=== PATIENT | male | born 1950 | race Caucasian/White ===

== ENCOUNTER 2016-08-09 03:32 | Emergency (ER) | payer MEDICARE ==
[~2016-08-09] VITALS: Ht 180.3 cm; Wt 64.4 kg
[~2016-08-09 03:32] MED LIST: REGL10TA5 PO
[2016-08-09 03:39] VITALS: BP 160/90; PULSE 69; RESP 22; TEMP 99; O2SAT 98
[2016-08-09 03:45] VITALS: BP 153/66; PULSE 68; RESP 16; TEMP 98.4; O2SAT 99
[2016-08-09] MEDS ORDERED: SODIUM CHLOR 0.9% 1000 ML INJ 1,000 ML IV SCH (03:47)
--- NOTE | 2016-08-09 03:47 | PD ---
HPI Chief Complaint: GI Complaint Time Seen by Provider: 03:45 Travel History International Travel<30 days: No Contact w/Intl Traveler<30days: No Traveled to known affect area: No History of Present Illness HPI 76-year-old male presents to the emergency department for complaint of abdominal pain with nausea vomiting and diarrhea. Symptoms of been present 3 days. Patient states pain worsened tonight. No fever or chills. No hematemesis no coffee-ground emesis no melena hematochezia. Patient is been seen numerous times in the emergency department for same complaint with multiple CAT scans of the abdomen and pelvis. Patient is followed by relay record clerk. Patient is to drinking alcohol last week. Patient has been treated in the past for gastritis pancreatitis as to paresis and is known by imaging study to have diverticulosis but no history of diverticulitis. Patient rates pain as moderate to severe. Patient is unable to identify exacerbating or alleviating factors. Patient reports "40 pound weight loss and 4 years". PFSH Past Medical History Narrative Medical Diverticulosis chronic abdominal pain possible gastroparesis GERD hypertension appendectomy; alcohol use no tobacco use; nursing notes reviewed Hx Anticoagulant Therapy: No Autoimmune Disease: No Cancer: No Cardiovascular Problems: No Chemotherapy: No Cerebrovascular Accident: No Diabetes: No Diminished Hearing: No Diverticulitis: Yes Endocrine: No Gastrointestinal Disorders: Yes GERD: Yes Genitourinary: No Hypertension: Yes Immune Disorder: No Musculoskeletal: Yes Neurologic: Yes (EAR RINGING LEFT EAR) Psychiatric: No Reproductive: No Respiratory: No Immunizations Current: Yes Radiation Therapy: No Sickle Cell Disease: No Thyroid Disease: No Ulcer: Yes (Gastric) Past Surgical History Abdominal Surgery: Yes (appendectomy ) Appendectomy: Yes Hysterectomy: No Other Surgery: Yes Social History Alcohol Use: No (States he quit 1 week ago) Tobacco Use: No (States he quit 1 week ago) Substance Use: No Allergies-Medications (Allergen,Severity, Reaction): Coded Allergies: No Known Allergies (Verified , 05/03/16) Reported Meds & Prescriptions Reported Meds & Active Scripts Active Review of Systems Except as stated in HPI: all other systems reviewed are Neg General / Constitutional: No: Fever, Chills HENT: No: Congestion Cardiovascular: No: Chest Pain or Discomfort Respiratory: No: Shortness of Breath Gastrointestinal: Positive: Nausea, Vomiting, Diarrhea, Abdominal Pain Genitourinary: No: Decreased Urinary Output, Flank Pain Musculoskeletal: No: Myalgias, Arthralgias Skin: No Rash Neurologic: No: Weakness, Dizziness Psychiatric: No: Anxiety Endocrine: No: Heat Intolerance Hematologic/Lymphatic: No: Easy Bruising Physical Exam Narrative GENERAL: Well-developed well-nourished male in no acute distress no respiratory distress SKIN: Warm and dry. HEAD: Normocephalic. EYES: No scleral icterus. No injection or drainage. NECK: Supple, trachea midline. No JVD or lymphadenopathy. CARDIOVASCULAR: Regular rate and rhythm without murmurs, gallops, or rubs. RESPIRATORY: Breath sounds equal bilaterally. No accessory muscle use. GASTROINTESTINAL: Abdomen soft, diffusely tender to palpation without guarding or rebound, nondistended. MUSCULOSKELETAL: No cyanosis, or edema. BACK: Nontender without obvious deformity. No CVA tenderness. Data Data Last Documented VS Vital Signs Date Time Temp Pulse Resp B/P Pulse Ox O2 Delivery O2 Flow Rate FiO2 08/09/16 05:35 74 16 156/72 99 Room Air 08/09/16 03:45 98.4 Orders Complete Blood Count With Diff (08/09/16 03:47) Comprehensive Metabolic Panel (08/09/16 03:47) Lipase (08/09/16 03:47) Iv Access Insert/Monitor (08/09/16 03:47) Ecg Monitoring (08/09/16 03:47) Oximetry (08/09/16 03:47) Ondansetron Inj (Zofran Inj) (08/09/16 04:00) Pantoprazole Inj (Protonix Inj) (08/09/16 04:00) Sodium Chlor 0.9% 1000 Ml Inj (Ns 1000 M (08/09/16 03:47) Sodium Chloride 0.9% Flush (Ns Flush) (08/09/16 04:00) Abdomen, Flat & Upright (08/09/16 ) Metoclopramide Inj (Reglan Inj) (08/09/16 05:00) Dicyclomine Inj (Bentyl Inj) (08/09/16 05:00) Ondansetron Inj (Zofran Inj) (08/09/16 05:30) Sodium Chlor 0.9% 1000 Ml Inj (Ns 1000 M (08/09/16 05:30) Promethazine Inj (Phenergan Inj) (08/09/16 07:00) Labs Laboratory Tests Test 08/09/16 03:45 White Blood Count 11.4 TH/MM3 Red Blood Count 4.82 MIL/MM3 Hemoglobin 16.0 GM/DL Hematocrit 48.1 % Mean Corpuscular Volume 99.9 FL Mean Corpuscular Hemoglobin 33.3 PG Mean Corpuscular Hemoglobin 33.3 % Concent Red Cell Distribution Width 13.7 % Platelet Count 237 TH/MM3 Mean Platelet Volume 8.4 FL Neutrophils (%) (Auto) 69.0 % Lymphocytes (%) (Auto) 16.0 % Monocytes (%) (Auto) 10.8 % Eosinophils (%) (Auto) 3.4 % Basophils (%) (Auto) 0.8 % Neutrophils # (Auto) 7.9 TH/MM3 Lymphocytes # (Auto) 1.8 TH/MM3 Monocytes # (Auto) 1.2 TH/MM3 Eosinophils # (Auto) 0.4 TH/MM3 Basophils # (Auto) 0.1 TH/MM3 CBC Comment DIFF FINAL Differential Comment Sodium Level 138 MEQ/L Potassium Level 3.8 MEQ/L Chloride Level 103 MEQ/L Carbon Dioxide Level 27.2 MEQ/L Anion Gap 8 MEQ/L Blood Urea Nitrogen 13 MG/DL Creatinine 0.82 MG/DL Estimat Glomerular Filtration 94 ML/MIN Rate Random Glucose 98 MG/DL Calcium Level 9.1 MG/DL Total Bilirubin 0.5 MG/DL Aspartate Amino Transf 16 U/L (AST/SGOT) Alanine Aminotransferase 21 U/L (ALT/SGPT) Alkaline Phosphatase 95 U/L Total Protein 7.4 GM/DL Albumin 3.7 GM/DL Lipase 384 U/L [facility] Medical Decision Making Medical Screen Exam Complete: Yes Emergency Medical Condition: Yes Medical Record Reviewed: Yes Interpretation(s) CBC & BMP Diagram 08/09/16 03:45 Vital Signs Date Time Temp Pulse Resp B/P Pulse Ox O2 Delivery O2 Flow Rate FiO2 08/09/16 03:45 68 16 153/66 99 08/09/16 03:39 99.0 69 22 160/90 98 Room Air AXR: No dilated loops of bowel; no air fluid levels; no subdiaphragmatic free air; stool is noted Differential Diagnosis Abdominal pain, gastroparesis, pancreatitis, gastritis, gastroenteritis, dehydration, diverticulitis, colitis, electrolyte disturbance, chronic pain syndrome Narrative Course IV access obtained specimens collected and sent for resulting patient administered normal saline bolus along with Protonix 40 mg IV Lab values grossly within normal range; patient sent for flat and upright abdomen x-ray Patient with recurrent vomiting reportedly therefore administered Reglan 10 mg IV and Bentyl 20 mg IM Patient appears stable at this time for outpatient management for chronic recurrent abdominal pain with vomiting; patient will be provided refill of antiemetic Diagnosis Primary Impression: Chronic abdominal pain Additional Impression: Nausea and vomiting Qualified Code: R11.2 - Non-intractable vomiting with nausea, unspecified vomiting type Referrals: Clinical Program Consultant call for appointment Primary Care Physician call for appointment Patient Instructions: General Instructions Additional Instructions: Follow clear liquid diet for next 12-24 hours; then advance as tolerated to bland/Jeronimo diet; then regular diet as tolerated Do not drink any alcoholic beverages Take medication as prescribed as needed for intestinal colic/spasm Take medication as prescribed as needed for nausea and/or vomiting Complete course of Carafate as prescribed Follow-up with your primary care physician call office on Thursday to schedule appointment Follow-up with your relay record clerk call office on Thursday to schedule follow- up appointment May take acetaminophen/Tylenol as needed for fever 100.4F or greater Return to the emergency department for any concerns or change in condition Med/Other Pt SpecificInfo: Prescription(s) given Scripts Ondansetron Odt (Zofran Odt)4 Mg Tab4 Mg SL Q6HR PRN (Nausea/Vomiting) #10 TAB Ref 0 Prov:Bharti Bagley MD 08/09/16 Promethazine (Phenergan)25 Mg Tab25 Mg PO Q6H PRN (Nausea/Vomiting) #10 TAB Ref 0 Prov:Bharti Bagley MD 08/09/16 Bharti Bagley MD Aug 09, 2016 03:46
[2016-08-09] MEDS ORDERED: ONDANSETRON HCL 4 MG/2 ML VIAL IVP ONE (04:00)
[2016-08-09] MEDS ORDERED: PANTOPRAZOLE SODIUM 40 MG VIAL IVP ONE (04:00)
[2016-08-09] MEDS ORDERED: SODIUM CHLORIDE 0.9% FLUSH 5 ML FLUSH IVF PRN (04:00)
[2016-08-09 04:05] LABS: AUTOMATED NEUTROPHIL # 7.9 TH/MM3 (1.8-7.7); BASOPHIL # 0.1 TH/MM3 (0-0.2); BASOPHIL % 0.8 % (0.0-2.0); EOSINOPHIL # 0.4 TH/MM3 (0-0.4); EOSINOPHIL % 3.4 % (0.0-4.0); HEMATOCRIT 48.1 % (39.0-51.0); LYMPHOCYTE # 1.8 TH/MM3 (1.0-4.8); MEAN CELL VOLUME 99.9 FL (80.0-100.0); MEAN CORPUSCULAR HEMOGLOBIN 33.3 PG (27.0-34.0); MEAN CORPUSCULAR HGB CONC 33.3 % (32.0-36.0); MONO % 10.8 % (0.0-8.0); PLATELET COUNT 237 TH/MM3 (150-450); RED BLOOD COUNT 4.82 MIL/MM3 (4.50-5.90); RED CELL DISTRIBUTION WIDTH 13.7 % (11.6-17.2); WHITE BLOOD COUNT 11.4 TH/MM3 (4.0-11.0)
[2016-08-09 04:13] LABS: HEMO FLAGS DIFF FINAL
[2016-08-09 04:18] LABS: CHLORIDE 103 MEQ/L (98-107); POTASSIUM 3.8 MEQ/L (3.5-5.1); SODIUM (NA) 138 MEQ/L (136-145)
[2016-08-09 04:22] LABS: ANION GAP 8 MEQ/L (5-15); BICARBONATE 27.2 MEQ/L (21.0-32.0); BLOOD UREA NITROGEN 13 MG/DL (7-18)
[2016-08-09 04:24] LABS: ALT (GPT) 21 U/L (12-78); AST (GOT) 16 U/L (15-37)
[2016-08-09 04:25] LABS: GLOMERULAR FILTRATION RATE 94 ML/MIN (>89)
[2016-08-09 04:26] LABS: TOTAL BILIRUBIN ADULT 0.5 MG/DL (0.2-1.0)
[2016-08-09 04:27] LABS: ALKALINE PHOSPHATASE 95 U/L (45-117)
[2016-08-09] MEDS ORDERED: DICYCLOMINE HCL 20 MG/2 ML VIAL IM ONE (05:00)
[2016-08-09] MEDS ORDERED: METOCLOPRAMIDE HCL 10 MG/2 ML VIAL IV PUSH ONE (05:00)
[2016-08-09] MEDS ORDERED: SODIUM CHLOR 0.9% 1000 ML INJ 1,000 ML IV ONE (05:30)
[2016-08-09] MEDS ORDERED: ONDANSETRON HCL 4 MG/2 ML VIAL IV PUSH ONE (05:30)
[2016-08-09 05:35] VITALS: BP 156/72; PULSE 74; RESP 16; O2SAT 99
[2016-08-09] MEDS ORDERED: PROMETHAZINE INJ 25 MG/ML VIAL IM ONE (07:00)
[2016-08-09] MEDS ORDERED: PROM25TA5 PO (07:01)
[2016-08-09] MEDS ORDERED: ZOFR4TAB3 SL (07:01)
--- NOTE | 2016-08-09 07:12 | RADHPO ---
EXAM DATE/TIME: 08/09/2016 05:07 [facility] COMPARISON: No previous studies available for comparison. INDICATIONS : Vomiting. MEDICAL HISTORY : Hypertension. Diverticulitis. SURGICAL HISTORY : Appendectomy. ENCOUNTER: Initial ACUITY: 1 day PAIN SCORE: 7/10 LOCATION: Bilateral abdomen FINDINGS: Supine and upright views of the abdomen were performed. The abdominal bowel gas pattern is normal. No air fluid levels are seen. No abnormal masses, calcifications, or organomegaly is seen. The visu alized lower lungs are clear. No evidence of free intraperitoneal gas. Degenerative changes in the s pine and hips. CONCLUSION: Nonspecific benign abdomen appearance. Galen Ribera MD on August 09, 2016 at 7:10 Board Certified Radiologist. This report was verified electronically.
[2016-08-09 07:13] VITALS: BP 144/62
== END 2016-08-09 07:22 | disposition home or self-care (01) ==
LOC: PHED 03:32
DX: R10.9 Unspecified abdominal pain (principal); G89.29 Other chronic pain; R11.2 Nausea with vomiting, unspecified; R19.7 Diarrhea, unspecified; I10 Essential (primary) hypertension; K21.9 Gastro-esophageal reflux disease without esophagitis; Z87.891 Personal history of nicotine dependence
CPT/HCPCS: 74020; 80053; 83690; 85025; 96361; 96372; 96374; 96375; 96376; 99284; C9113; J0500; J2405; J2550; J2765; J7030

== ENCOUNTER 2016-08-11 08:53 | Emergency (ER) | payer MEDICARE ==
[~2016-08-11] VITALS: Ht 180.3 cm; Wt 65.0 kg
[~2016-08-11 08:53] MED LIST changes: +PROM25TA5 PO; -REGL10TA5 PO; +ZOFR4TAB3 SL
[2016-08-11 09:01] VITALS: BP 152/81; PULSE 60; RESP 18; TEMP 97.8; O2SAT 99
[2016-08-11] MEDS ORDERED: ONDANSETRON HCL 4 MG/2 ML VIAL IVP ONE (09:30)
[2016-08-11] MEDS ORDERED: PROMETHAZINE INJ 25 MG/ML VIAL IM ONE (09:30)
[2016-08-11] MEDS ORDERED: SODIUM CHLORIDE 0.9% FLUSH 5 ML FLUSH IVF PRN (09:30)
[2016-08-11] MEDS ORDERED: SODIUM CHLOR 0.9% 1000 ML INJ 1,000 ML IV ONE (09:30)
[2016-08-11] MEDS ORDERED: DICYCLOMINE HCL 20 MG/2 ML VIAL IM ONE (09:30)
--- NOTE | 2016-08-11 09:37 | PD ---
HPI Chief Complaint: Abdominal Pain Time Seen by Provider: 09:15 Travel History International Travel<30 days: No Contact w/Intl Traveler<30days: No Traveled to known affect area: No History of Present Illness HPI This patient has had frequent spells of nausea vomiting and abdominal pain for the last 5 years. He's been here multiple times for the same and does have a GI physician. Symptoms of the same as usual. He was here 2 days ago and has the same symptoms. No rectal bleeding or hemoptysis. He is a fairly frequent alcohol drinker but denies drinking today. No alleviating factors. Severity symptoms is moderate PFSH Past Medical History Hx Anticoagulant Therapy: No Autoimmune Disease: No Cancer: No Cardiovascular Problems: No Chemotherapy: No Cerebrovascular Accident: No Diabetes: No Diminished Hearing: No Diverticulitis: Yes Endocrine: No Gastrointestinal Disorders: Yes (gastroentritis) GERD: Yes Genitourinary: No Heparin Induced Thrombocytopen: No Hypertension: No (states never was dx with htn) Immune Disorder: No Implanted Vascular Access Dvce: No Musculoskeletal: Yes Neurologic: Yes (EAR RINGING LEFT EAR) Psychiatric: No Reproductive: No Respiratory: No Immunizations Current: Yes Radiation Therapy: No Sickle Cell Disease: No Thyroid Disease: No Ulcer: Yes (Gastric) Tetanus Vaccination: > 5 Years Influenza Vaccination: No Past Surgical History Abdominal Surgery: Yes (appendectomy ) Appendectomy: Yes Hysterectomy: No Other Surgery: Yes Social History Alcohol Use: Yes (wine daily, states hx of a bottle of wine daily now drinks wine occas.) Tobacco Use: Yes (2 cigars d ) Substance Use: No Allergies-Medications (Allergen,Severity, Reaction): Coded Allergies: No Known Allergies (Verified , 08/11/16) Reported Meds & Prescriptions Reported Meds & Active Scripts Active Zofran Odt (Ondansetron Odt) 4 Mg Tab 4 Mg SL Q6HR PRN Phenergan (Promethazine HCl) 25 Mg Tab 25 Mg PO Q6H PRN Review of Systems General / Constitutional: No: Fever Eyes: No: Visual changes HENT: No: Headaches Cardiovascular: No: Chest Pain or Discomfort Respiratory: No: Shortness of Breath Gastrointestinal: Positive: Nausea, Vomiting, Abdominal Pain Genitourinary: No: Dysuria Musculoskeletal: No: Pain Skin: No Rash Neurologic: No: Weakness Psychiatric: No: Depression Endocrine: No: Polydipsia Hematologic/Lymphatic: No: Easy Bruising Physical Exam Narrative GENERAL: Well-nourished, well-developed patient with nausea and abdominal cramps. SKIN: Warm and dry. HEAD: Atraumatic. Normocephalic. EYES: Pupils equal and round. No scleral icterus. No injection or drainage. ENT: No nasal bleeding or discharge. Mucous membranes pink and moist. NECK: Trachea midline. No JVD. CARDIOVASCULAR: Regular rate and rhythm. No murmur appreciated. RESPIRATORY: No accessory muscle use. Clear to auscultation. Breath sounds equal bilaterally. GASTROINTESTINAL: Abdomen soft, non-tender, nondistended. Hepatic and splenic margins not palpable. MUSCULOSKELETAL: No obvious deformities. No clubbing. No cyanosis. No edema. NEUROLOGICAL: Awake and alert. No obvious cranial nerve deficits. Motor grossly within normal limits. Normal speech. PSYCHIATRIC: Appropriate mood and affect; insight and judgment poor . Data Data Last Documented VS Vital Signs Date Time Temp Pulse Resp B/P Pulse Ox O2 Delivery O2 Flow Rate FiO2 08/11/16 09:45 90 16 179/65 97 Room Air 08/11/16 09:01 97.8 Orders Complete Blood Count With Diff (08/11/16 09:27) Comprehensive Metabolic Panel (08/11/16 09:27) Lipase (08/11/16 09:27) Iv Access Insert/Monitor (08/11/16 09:27) Ondansetron Inj (Zofran Inj) (08/11/16 09:30) Sodium Chloride 0.9% Flush (Ns Flush) (08/11/16 09:30) Dicyclomine Inj (Bentyl Inj) (08/11/16 09:30) Sodium Chlor 0.9% 1000 Ml Inj (Ns 1000 M (08/11/16 09:30) Promethazine Inj (Phenergan Inj) (08/11/16 09:30) Labs Laboratory Tests Test 08/11/16 09:40 White Blood Count 8.1 TH/MM3 Red Blood Count 4.69 MIL/MM3 Hemoglobin 15.8 GM/DL Hematocrit 47.3 % Mean Corpuscular Volume 100.9 FL Mean Corpuscular Hemoglobin 33.7 PG Mean Corpuscular Hemoglobin 33.4 % Concent Red Cell Distribution Width 13.4 % Platelet Count 216 TH/MM3 Mean Platelet Volume 8.4 FL Neutrophils (%) (Auto) 70.1 % Lymphocytes (%) (Auto) 15.7 % Monocytes (%) (Auto) 9.6 % Eosinophils (%) (Auto) 2.0 % Basophils (%) (Auto) 2.6 % Neutrophils # (Auto) 5.6 TH/MM3 Lymphocytes # (Auto) 1.3 TH/MM3 Monocytes # (Auto) 0.8 TH/MM3 Eosinophils # (Auto) 0.2 TH/MM3 Basophils # (Auto) 0.2 TH/MM3 CBC Comment DIFF FINAL Differential Comment Sodium Level 138 MEQ/L Potassium Level 4.0 MEQ/L Chloride Level 102 MEQ/L Carbon Dioxide Level 26.5 MEQ/L Anion Gap 10 MEQ/L Blood Urea Nitrogen 18 MG/DL Creatinine 0.91 MG/DL Estimat Glomerular Filtration 83 ML/MIN Rate Random Glucose 104 MG/DL Calcium Level 8.7 MG/DL Total Bilirubin 0.5 MG/DL Aspartate Amino Transf 41 U/L (AST/SGOT) Alanine Aminotransferase 30 U/L (ALT/SGPT) Alkaline Phosphatase 86 U/L Total Protein 7.2 GM/DL Albumin 3.6 GM/DL Lipase 159 U/L [facility] Medical Decision Making Medical Screen Exam Complete: Yes Emergency Medical Condition: Yes Medical Record Reviewed: Yes Differential Diagnosis Gastroparesis, narcotic withdrawal, alcoholic pancreatitis Narrative Course I have reviewed the patient's electronic medical record. Reviewed his workup from 2 days ago. He had negative labs IV placed Abdomen is soft and benign and nontender This is a flare of a chronic problem is had for 5 years now We've done 5 CTs in the last year which were negative and I don't think he requires emergent imaging today CBC is normal Metabolic profile is normal LFTs are normal Lipase is normal I gave him 1 L normal saline IV and IV Zofran and IM Phenergan and IM Bentyl On recheck he looks improved. Stable for outpatient GI follow-up Diagnosis Primary Impression: Nausea and vomiting Qualified Code: R11.2 - Non-intractable vomiting with nausea, unspecified vomiting type Additional Impression: Chronic abdominal pain Additional Instructions: The patient was advised to follow up with their physician and return if they worsen. Med/Other Pt SpecificInfo: Other Disposition: 01 DISCHARGE HOME Condition: Stable Erwin Bourne MD Aug 11, 2016 09:37
[2016-08-11 09:45] VITALS: BP 179/65; PULSE 90; RESP 16; O2SAT 97
[2016-08-11 09:48] LABS: AUTOMATED NEUTROPHIL # 5.6 TH/MM3 (1.8-7.7); BASOPHIL # 0.2 TH/MM3 (0-0.2); BASOPHIL % 2.6 % (0.0-2.0); EOSINOPHIL # 0.2 TH/MM3 (0-0.4); HEMATOCRIT 47.3 % (39.0-51.0); LYMPH % 15.7 % (9.0-44.0); LYMPHOCYTE # 1.3 TH/MM3 (1.0-4.8); MEAN CELL VOLUME 100.9 FL (80.0-100.0); MEAN CORPUSCULAR HEMOGLOBIN 33.7 PG (27.0-34.0); MEAN CORPUSCULAR HGB CONC 33.4 % (32.0-36.0); MONO % 9.6 % (0.0-8.0); NEUT % 70.1 % (16.0-70.0); PLATELET COUNT 216 TH/MM3 (150-450); RED BLOOD COUNT 4.69 MIL/MM3 (4.50-5.90); RED CELL DISTRIBUTION WIDTH 13.4 % (11.6-17.2); WHITE BLOOD COUNT 8.1 TH/MM3 (4.0-11.0)
[2016-08-11 09:51] LABS: HEMO FLAGS DIFF FINAL
[2016-08-11 10:04] LABS: CHLORIDE 102 MEQ/L (98-107); SODIUM (NA) 138 MEQ/L (136-145)
[2016-08-11 10:09] LABS: ANION GAP 10 MEQ/L (5-15); BICARBONATE 26.5 MEQ/L (21.0-32.0); BLOOD UREA NITROGEN 18 MG/DL (7-18)
[2016-08-11 10:12] LABS: ALT (GPT) 30 U/L (12-78); GLOMERULAR FILTRATION RATE 83 ML/MIN (>89)
[2016-08-11 10:15] LABS: ALKALINE PHOSPHATASE 86 U/L (45-117)
[2016-08-11 10:33] LABS: AST (GOT) 41 U/L (15-37); TOTAL BILIRUBIN ADULT 0.5 MG/DL (0.2-1.0)
[2016-08-11 10:51] VITALS: BP 141/68
== END 2016-08-11 11:07 | disposition home or self-care (01) ==
LOC: PHED 08:53
DX: R10.9 Unspecified abdominal pain (principal); G89.29 Other chronic pain; R11.2 Nausea with vomiting, unspecified
CPT/HCPCS: 80053; 83690; 85025; 96361; 96372; 96374; 99284; J0500; J2405; J2550; J7030

== ENCOUNTER 2016-08-13 00:30 | Emergency (ER) | payer MEDICARE ==
[~2016-08-13] VITALS: Ht 180.3 cm; Wt 60.0 kg
[2016-08-13 00:40] VITALS: BP 200/87; PULSE 60; TEMP 98.3; O2SAT 100
[2016-08-13] MEDS ORDERED: TUMS500C CHEW (01:04)
[2016-08-13 01:35] LABS: BASOPHIL # 0.1 TH/MM3 (0-0.2); BASOPHIL % 0.7 % (0.0-2.0); EOSINOPHIL # 0.3 TH/MM3 (0-0.4); EOSINOPHIL % 4.5 % (0.0-4.0); HEMATOCRIT 42.8 % (39.0-51.0); HEMO FLAGS DIFF FINAL; LYMPH % 18.7 % (9.0-44.0); LYMPHOCYTE # 1.4 TH/MM3 (1.0-4.8); MEAN CELL VOLUME 100.7 FL (80.0-100.0); MEAN CORPUSCULAR HEMOGLOBIN 35.1 PG (27.0-34.0); MEAN CORPUSCULAR HGB CONC 34.9 % (32.0-36.0); MONO % 11.5 % (0.0-8.0); NEUT % 64.6 % (16.0-70.0); PLATELET COUNT 222 TH/MM3 (150-450); RED BLOOD COUNT 4.25 MIL/MM3 (4.50-5.90); RED CELL DISTRIBUTION WIDTH 13.6 % (11.6-17.2); WHITE BLOOD COUNT 7.7 TH/MM3 (4.0-11.0)
[2016-08-13 02:08] LABS: ALT (GPT) 32 U/L (12-78); ANION GAP 11 MEQ/L (5-15); AST (GOT) 46 U/L (15-37); BICARBONATE 24.7 MEQ/L (21.0-32.0); BLOOD UREA NITROGEN 17 MG/DL (7-18); CHLORIDE 102 MEQ/L (98-107); GLOMERULAR FILTRATION RATE 86 ML/MIN (>89); POTASSIUM 4.1 MEQ/L (3.5-5.1); SODIUM (NA) 138 MEQ/L (136-145)
[2016-08-13 02:10] LABS: ALKALINE PHOSPHATASE 78 U/L (45-117); TOTAL BILIRUBIN ADULT 0.5 MG/DL (0.2-1.0)
[2016-08-13] MEDS ORDERED: PANTOPRAZOLE SODIUM 40 MG VIAL IV PUSH ONE (02:15)
[2016-08-13] MEDS ORDERED: ONDANSETRON HCL 4 MG/2 ML VIAL IV PUSH ONE (02:15)
[2016-08-13] MEDS ORDERED: SODIUM CHLOR 0.9% 1000 ML INJ 1,000 ML IV ONE (02:15)
[2016-08-13] MEDS ORDERED: IOHEXOL 350 MG/ML 10 ML VIAL (for RAD DIAG) IV ONE (02:55)
--- NOTE | 2016-08-13 03:02 | RADRPT ---
EXAM DATE/TIME: 08/13/2016 02:48 [facility] COMPARISON: CT ABDOMEN & PELVIS W CONTRAST, April 28, 2016, 18:32. INDICATIONS : Abdominal pain along with vomiting IV CONTRAST: 92 cc Omnipaque 350 (iohexol) IV ORAL CONTRAST: No oral contrast ingested. RADIATION DOSE: 6.37 CTDIvol (mGy) MEDICAL HISTORY : Diabetes mellitus type 2. Gastroesophageal reflux disease. SURGICAL HISTORY : Appendectomy. ENCOUNTER: Initial ACUITY: 1 day PAIN SCALE: 3/10 LOCATION: abdomen TECHNIQUE: Volumetric scanning of the abdomen and pelvis was performed. Using automated exposure control and ad justment of the mA and/or kV according to patient size, radiation dose was kept as low as reasonably achievable to obtain optimal diagnostic quality images. FINDINGS: LOWER LUNGS: The visualized lower lungs are clear. Small sliding-type hiatal hernia. LIVER: Homogeneous density without lesion. There is no dilation of the biliary tree. No calcified gallston es. SPLEEN: Normal size without lesion. PANCREAS: Within normal limits. KIDNEYS: Normal in size and shape. There is no mass, stone or hydronephrosis. ADRENAL GLANDS: Within normal limits. VASCULAR: There is no aortic aneurysm. BOWEL/MESENTERY: Extensive diverticular disease in the descending and sigmoid colon without diverticulitis. ABDOMINAL WALL: Within normal limits. RETROPERITONEUM: There is no lymphadenopathy. BLADDER: No wall thickening or mass. REPRODUCTIVE: Within normal limits. INGUINAL: There is no lymphadenopathy or hernia. MUSCULOSKELETAL: Within normal limits for patient age. CONCLUSION: 1. Diverticular disease of the descending and sigmoid colon without diverticulitis. 2. Small hiatal hernia. 3. Nothing acute. Niko Don MD on August 13, 2016 at 2:58 Board Certified Radiologist. This report was verified electronically.
[2016-08-13] MEDS ORDERED: HYDROmorphone HCL PF 1 MG/ML VIAL IV PUSH ONE (03:15)
[2016-08-13 04:10] LABS: BLOOD, URINE NEG (NEG); GLUCOSE,URINE NEG (NEG); HYALINE CAST, URINE 1 /lpf (RARE); KETONE, URINE 10 mg/dL (NEG); NITRITE,URINE NEG (NEG); URINE COLOR YELLOW (YELLW/STRAW)
[2016-08-13 04:11] LABS: COMMENT (UR) CULT NOT INDICATED; CULTURE IF INDICATED CULT NOT INDICATED
[2016-08-13 05:00] VITALS: BP 142/66; RESP 16; O2SAT 95
[2016-08-13] MEDS ORDERED: FAMO1TAB73 PO (05:07)
--- NOTE | 2016-08-13 05:07 | PD ---
HPI Chief Complaint: Abdominal Pain Time Seen by Provider: 02:13 Travel History International Travel<30 days: No Contact w/Intl Traveler<30days: No Traveled to known affect area: No History of Present Illness HPI 66-year-old male with history of chronic abdominal pains, diverticulosis, here in the ER because of worsening abdominal pain which is in the upper abdomen rating it at an 8 out of 10, nausea, vomiting small amount of blood. He states that he thinks symptoms may have worsened when he ate. He denies any fevers, diarrhea, black stools, or any other symptoms. Symptoms are similar to previous symptoms of chronic abdominal pains. He states he was here several days ago for similar symptoms and had been given Phenergan and Zofran which she states did not work very well for him today although he only took in the morning. He denies any blood in the stool. Modifying Factors: None Associated Signs & Symptoms: Nausea, vomiting, upper abdominal pain Risk Factors: Chronic abdominal pains PFSH Past Medical History Hx Anticoagulant Therapy: No Autoimmune Disease: No Cancer: No Cardiovascular Problems: No Chemotherapy: No Cerebrovascular Accident: No Diabetes: No Diminished Hearing: No Diverticulitis: Yes Endocrine: No Gastrointestinal Disorders: Yes (gastroentritis) GERD: Yes Genitourinary: No Heparin Induced Thrombocytopen: No Immune Disorder: No Implanted Vascular Access Dvce: No Musculoskeletal: Yes Neurologic: Yes (EAR RINGING LEFT EAR) Psychiatric: No Reproductive: No Respiratory: No Immunizations Current: Yes Radiation Therapy: No Sickle Cell Disease: No Thyroid Disease: No Ulcer: Yes (Gastric) Past Surgical History Abdominal Surgery: Yes (appendectomy ) Appendectomy: Yes Hysterectomy: No Other Surgery: Yes Social History Alcohol Use: Yes (QUIT Aug ) Tobacco Use: No Substance Use: No Allergies-Medications (Allergen,Severity, Reaction): Coded Allergies: No Known Allergies (Verified , 08/11/16) Reported Meds & Prescriptions Reported Meds & Active Scripts Active Zofran Odt (Ondansetron Odt) 4 Mg Tab 4 Mg SL Q6HR PRN Phenergan (Promethazine HCl) 25 Mg Tab 25 Mg PO Q6H PRN Reported Tums (Calcium Carbonate (Antacid)) 500 Mg Chew 500 Mg CHEW PRN Review of Systems Except as stated in HPI: all other systems reviewed are Neg Physical Exam Narrative GENERAL: Well-nourished, well-developed elderly white male patient in mild distress. Awake and oriented 3. SKIN: Warm and dry. HEAD: Normocephalic. EYES: No scleral icterus. No injection or drainage. NECK: Supple, trachea midline. CARDIOVASCULAR: Regular rate and rhythm without murmurs, gallops, or rubs. RESPIRATORY: Breath sounds equal bilaterally. No accessory muscle use. GASTROINTESTINAL: Abdomen soft, epigastric abdominal tenderness and left upper quadrant tenderness without guarding or rebound, nondistended. MUSCULOSKELETAL: No cyanosis, or edema. BACK: Nontender without obvious deformity. No CVA tenderness. Data Data Last Documented VS Vital Signs Date Time Temp Pulse Resp B/P Pulse Ox O2 Delivery O2 Flow Rate FiO2 08/13/16 00:40 98.3 60 200/87 100 Orders Complete Blood Count With Diff (08/13/16 00:52) Comprehensive Metabolic Panel (08/13/16 00:52) Urinalysis - C+S If Indicated (08/13/16 00:52) Ondansetron Inj (Zofran Inj) (08/13/16 02:15) Sodium Chlor 0.9% 1000 Ml Inj (Ns 1000 M (08/13/16 02:15) Pantoprazole Inj (Protonix Inj) (08/13/16 02:15) Ct Abd/Pel W Iv Contrast(Rout) (08/13/16 02:14) Iohexol 350 Inj (Omnipaque 350 Inj) (08/13/16 02:55) Hydromorphone Pf Inj (Dilaudid Pf Inj) (08/13/16 03:15) Labs Laboratory Tests Test 08/13/16 08/13/16 01:12 03:50 White Blood Count 7.7 TH/MM3 Red Blood Count 4.25 MIL/MM3 Hemoglobin 14.9 GM/DL Hematocrit 42.8 % Mean Corpuscular Volume 100.7 FL Mean Corpuscular Hemoglobin 35.1 PG Mean Corpuscular Hemoglobin 34.9 % Concent Red Cell Distribution Width 13.6 % Platelet Count 222 TH/MM3 Mean Platelet Volume 8.7 FL Neutrophils (%) (Auto) 64.6 % Lymphocytes (%) (Auto) 18.7 % Monocytes (%) (Auto) 11.5 % Eosinophils (%) (Auto) 4.5 % Basophils (%) (Auto) 0.7 % Neutrophils # (Auto) 5.0 TH/MM3 Lymphocytes # (Auto) 1.4 TH/MM3 Monocytes # (Auto) 0.9 TH/MM3 Eosinophils # (Auto) 0.3 TH/MM3 Basophils # (Auto) 0.1 TH/MM3 CBC Comment DIFF FINAL Differential Comment Sodium Level 138 MEQ/L Potassium Level 4.1 MEQ/L Chloride Level 102 MEQ/L Carbon Dioxide Level 24.7 MEQ/L Anion Gap 11 MEQ/L Blood Urea Nitrogen 17 MG/DL Creatinine 0.88 MG/DL Estimat Glomerular Filtration 86 ML/MIN Rate Random Glucose 108 MG/DL Calcium Level 8.5 MG/DL Total Bilirubin 0.5 MG/DL Aspartate Amino Transf 46 U/L (AST/SGOT) Alanine Aminotransferase 32 U/L (ALT/SGPT) Alkaline Phosphatase 78 U/L Total Protein 7.1 GM/DL Albumin 3.7 GM/DL Urine Color YELLOW Urine Turbidity CLEAR Urine pH 6.0 Urine Specific [place] 1.020 Urine Protein NEG mg/dL Urine Glucose (UA) NEG mg/dL Urine Ketones 10 mg/dL Urine Occult Blood NEG Urine Nitrite NEG Urine Bilirubin NEG Urine Urobilinogen LESS THAN 2.0 MG/DL Urine Leukocyte Esterase NEG Urine RBC 1 /hpf Urine WBC LESS THAN 1 /hpf Urine Hyaline Casts 1 /lpf Microscopic Urinalysis Comment CULT NOT INDICATED MDM Medical Decision Making Medical Screen Exam Complete: Yes Emergency Medical Condition: Yes Medical Record Reviewed: Yes Interpretation(s) Laboratory Tests Test 08/13/16 08/13/16 01:12 03:50 Red Blood Count 4.25 MIL/MM3 (4.50-5.90) Mean Corpuscular Volume 100.7 FL (80.0-100.0) Mean Corpuscular Hemoglobin 35.1 PG (27.0-34.0) Monocytes (%) (Auto) 11.5 % (0.0-8.0) Eosinophils (%) (Auto) 4.5 % (0.0-4.0) Estimat Glomerular Filtration 86 ML/MIN (>89) Rate Random Glucose 108 MG/DL (74-106) Aspartate Amino Transf 46 U/L (15-37) (AST/SGOT) Urine Ketones 10 mg/dL (NEG) Last 24 hours Impressions Abdomen/Pelvis CT 08/13/164 Signed Impressions: Service Date/Time: Saturday, August 13, 2016 02:48 - CONCLUSION: 1. Diverticular disease of the descending and sigmoid colon without diverticulitis. 2. Small hiatal hernia. 3. Nothing acute. Niko Don MD Differential Diagnosis Abdominal pain, nausea, vomitinggastritis versus gastroenteritis versus diverticulitis versus obstruction Narrative Course Lab work did not indicate significant electrolyte abnormalities or acute intra- abdominal processes seen on CAT scan. It appears that this is an acute on chronic abdominal episodes. Patient was given IV fluids, pain medication and Zofran in the ER with no further vomiting episodes on reevaluation at 4:40 AM. My plan would be to release the patient would follow-up to GI doctor. Return for any worsening in symptoms as needed. The plan has been discussed with him and he states understanding. Diagnosis Primary Impression: Abdominal pain Additional Impression: Nausea and vomiting Med/Other Pt SpecificInfo: Prescription(s) given Scripts Famotidine (Pepcid)40 Mg Tab40 Mg PO BID #20 TAB Ref 0 Prov:Ivan Chávez MD 08/13/16 Disposition: 01 DISCHARGE HOME Condition: Stable Ivan Chávez MD Aug 13, 2016 05:07
== END 2016-08-13 05:28 | disposition home or self-care (01) ==
LOC: NEPE 00:30
DX: R10.10 Upper abdominal pain, unspecified (principal); R11.2 Nausea with vomiting, unspecified
CPT/HCPCS: 74177; 80053; 81001; 85025; 96361; 96374; 96375; 99284; C9113; J1170; J2405; J7030; Q9967

== ENCOUNTER 2016-08-14 22:02 | Emergency (ER) | payer MEDICARE ==
[~2016-08-14] VITALS: Ht 180.3 cm; Wt 63.0 kg
[~2016-08-14 22:02] MED LIST changes: +FAMO1TAB73 PO; +TUMS500C CHEW
[2016-08-14 22:03] VITALS: BP 198/88; PULSE 64; RESP 24; TEMP 99; O2SAT 100
[2016-08-15] MEDS ORDERED: OMEP40CA2 PO (15:21)
[2016-08-15] MEDS ORDERED: MIRA33504 PO (15:21)
== END 2016-08-14 23:42 | disposition left against medical advice (07) ==
LOC: NED 22:02
DX: R68.89 Other general symptoms and signs (principal)
CPT/HCPCS: 99281

== ENCOUNTER 2016-08-14 23:20 | Observation (INO) | payer MEDICARE ==
[~2016-08-14] VITALS: Ht 180.3 cm; Wt 64.7 kg
[2016-08-14 23:25] VITALS: BP 148/78; PULSE 63; RESP 18; TEMP 98.1; O2SAT 99
[2016-08-14] MEDS ORDERED: PANTOPRAZOLE SODIUM 40 MG VIAL IVP ONE (23:45)
[2016-08-14] MEDS ORDERED: SODIUM CHLORIDE 0.9% FLUSH 5 ML FLUSH IVF PRN (23:45)
[2016-08-14] MEDS ORDERED: ONDANSETRON HCL 4 MG/2 ML VIAL IVP ONE (23:45)
--- NOTE | 2016-08-14 23:55 | PD ---
HPI Chief Complaint: GI Complaint Time Seen by Provider: 00:39 Travel History International Travel<30 days: No Contact w/Intl Traveler<30days: No Traveled to known affect area: No History of Present Illness HPI 66-year-old male presents to the emergency department for complaint of epigastric abdominal pain with nausea and vomiting. This is his fourth visit in 5 days for same complaint. Patient has history of chronic recurrent abdominal pain gastroparesis and episodes of vomiting with remote history of pancreatitis. Patient states that 08/13/16 he was seen in the emergency department at [facility] and a CT abdomen and pelvis was performed which revealed no acute abnormality. He reports he was told by the physician at that time that he hasn't also urged follow-up with his interactive multimedia designer. Patient states he placed a phone call but no one returned his call and he did not take his medications today because he forgot them and this evening around 7:30 started having recurrent nausea vomiting and thinks he was vomiting blood. Patient's had no black or tarry stools. Patient admits to drinking alcohol as recently as one week ago. Patient has been prescribed Pepcid Phenergan and Zofran. No reported fever chills chest pain or shortness of breath. Patient's interactive multimedia designer is Dr. Bradford. Past medical history is significant for gastritis GERD gastroparesis chronic recurrent abdominal pain pancreatitis alcohol use diverticulosis anxiety hypertension and previous appendectomy. Patient rates his abdominal pain 8/10 in intensity. [facility] Past Medical History Narrative Medical Diverticulosis chronic abdominal pain gastroparesis gastritis GERD hypertension appendectomy alcohol use no tobacco use nursing notes reviewed Hx Anticoagulant Therapy: No Autoimmune Disease: No Cancer: No Cardiovascular Problems: No Chemotherapy: No Cerebrovascular Accident: No Diabetes: No Diminished Hearing: No Diverticulitis: Yes Endocrine: No Gastrointestinal Disorders: Yes (gastroentritis) GERD: Yes Genitourinary: No Heparin Induced Thrombocytopen: No Immune Disorder: No Implanted Vascular Access Dvce: No Musculoskeletal: Yes Neurologic: Yes (EAR RINGING LEFT EAR) Psychiatric: No Reproductive: No Respiratory: No Immunizations Current: Yes Radiation Therapy: No Sickle Cell Disease: No Thyroid Disease: No Ulcer: Yes (Gastric) ?: Not Past Surgical History Abdominal Surgery: Yes (appendectomy ) Appendectomy: Yes Hysterectomy: No Other Surgery: Yes Social History Alcohol Use: Yes (QUIT Aug ) Tobacco Use: No Substance Use: No Allergies-Medications (Allergen,Severity, Reaction): Coded Allergies: No Known Allergies (Verified , 08/14/16) Reported Meds & Prescriptions Reported Meds & Active Scripts Active Phenergan (Promethazine HCl) 25 Mg Tab 25 Mg PO Q6H PRN Reported Tums (Calcium Carbonate (Antacid)) 500 Mg Chew 500 Mg CHEW PRN Review of Systems Except as stated in HPI: all other systems reviewed are Neg General / Constitutional: No: Fever, Chills HENT: No: Congestion Cardiovascular: No: Chest Pain or Discomfort Respiratory: No: Shortness of Breath Gastrointestinal: Positive: Nausea, Vomiting, Abdominal Pain, Hematemesis, No : Diarrhea Genitourinary: No: Dysuria, Flank Pain Musculoskeletal: No: Myalgias, Arthralgias Skin: No Rash Neurologic: No: Weakness Psychiatric: No: Anxiety Hematologic/Lymphatic: No: Easy Bruising Physical Exam Narrative GENERAL: Well-developed well-nourished male in no acute distress no respiratory distress SKIN: Warm and dry. HEAD: Normocephalic. EYES: No scleral icterus. No injection or drainage. NECK: Supple, trachea midline. No JVD or lymphadenopathy. CARDIOVASCULAR: Regular rate and rhythm without murmurs, gallops, or rubs. RESPIRATORY: Breath sounds equal bilaterally. No accessory muscle use. GASTROINTESTINAL: Abdomen soft, reproducible epigastric and periumbilical tenderness to palpation without guarding or rebound and no palpable pulsatile mass, nondistended. MUSCULOSKELETAL: No cyanosis, or edema. BACK: Nontender without obvious deformity. No CVA tenderness. Data Data Last Documented VS Vital Signs Date Time Temp Pulse Resp B/P Pulse Ox O2 Delivery O2 Flow Rate FiO2 08/15/16 00:13 72 18 160/80 74 18 175/76 72 174/79 08/14/16 23:25 98.1 99 Orders Complete Blood Count With Diff (08/14/16 23:44) Comprehensive Metabolic Panel (08/14/16 23:44) Lipase (08/14/16 23:44) Lactic Acid (08/14/16 23:44) Iv Access Insert/Monitor (08/14/16 23:44) Ecg Monitoring (08/14/16 23:44) Oximetry (08/14/16 23:44) Ondansetron Inj (Zofran Inj) (08/14/16 23:45) Pantoprazole Inj (Protonix Inj) (08/14/16 23:45) Sodium Chloride 0.9% Flush (Ns Flush) (08/14/16 23:45) Electrocardiogram (08/14/16 23:44) Orthostatic Vital Signs (08/14/16 23:44) Magnesium (Mg) (08/14/16 23:44) Alcohol (Ethanol) (08/14/16 23:44) Abdomen, Flat & Upright (08/14/16 ) Metoclopramide Inj (Reglan Inj) (08/15/16 00:45) Admit Order (Ed Use Only) (08/15/16 ) ^ Saline Lock (08/15/16 01:51) Resp Oxygen Selwyn C Titrat 1-4 L (08/15/16 ) ^ Notify Dr: Other (08/15/16 01:51) Sodium Chloride 0.9% Flush (Ns Flush) (08/15/16 09:00) Sodium Chloride 0.9% Flush (Ns Flush) (08/15/16 02:00) Labs Laboratory Tests Test 08/15/16 00:00 White Blood Count 9.6 TH/MM3 Red Blood Count 4.35 MIL/MM3 Hemoglobin 14.9 GM/DL Hematocrit 43.6 % Mean Corpuscular Volume 100.2 FL Mean Corpuscular Hemoglobin 34.3 PG Mean Corpuscular Hemoglobin 34.3 % Concent Red Cell Distribution Width 12.6 % Platelet Count 233 TH/MM3 Mean Platelet Volume 8.6 FL Neutrophils (%) (Auto) 77.5 % Lymphocytes (%) (Auto) 10.9 % Monocytes (%) (Auto) 7.2 % Eosinophils (%) (Auto) 3.5 % Basophils (%) (Auto) 0.9 % Neutrophils # (Auto) 7.5 TH/MM3 Lymphocytes # (Auto) 1.0 TH/MM3 Monocytes # (Auto) 0.7 TH/MM3 Eosinophils # (Auto) 0.3 TH/MM3 Basophils # (Auto) 0.1 TH/MM3 CBC Comment AUTO DIFF Differential Comment AUTO DIFF CONFIRMED Platelet Estimate NORMAL Platelet Morphology Comment NORMAL Sodium Level 138 MEQ/L Potassium Level 3.4 MEQ/L Chloride Level 102 MEQ/L Carbon Dioxide Level 23.7 MEQ/L Anion Gap 12 MEQ/L Blood Urea Nitrogen 12 MG/DL Creatinine 0.91 MG/DL Estimat Glomerular Filtration 83 ML/MIN Rate Random Glucose 95 MG/DL Lactic Acid Level 2.8 mmol/L Calcium Level 8.9 MG/DL Magnesium Level 1.7 MG/DL Total Bilirubin 0.6 MG/DL Aspartate Amino Transf 34 U/L (AST/SGOT) Alanine Aminotransferase 36 U/L (ALT/SGPT) Alkaline Phosphatase 79 U/L Total Protein 7.3 GM/DL Albumin 3.7 GM/DL Lipase 156 U/L Ethyl Alcohol Level LESS THAN 3 MG/DL MDM Medical Decision Making Medical Screen Exam Complete: Yes Emergency Medical Condition: Yes Medical Record Reviewed: Yes Interpretation(s) lactic acid: 2.8, elevated Last Impressions Abdomen X-Ray 08/14/16 0000 Signed Impressions: Service Date/Time: Monday, August 15, 2016 00:20 - CONCLUSION: No dilated loops of small or large bowel. Gonsalo Hoyt MD CBC & BMP Diagram 08/15/16 00:00 Vital Signs Date Time Temp Pulse Resp B/P Pulse Ox O2 Delivery O2 Flow Rate FiO2 08/15/16 00:13 72 18 160/80 74 18 175/76 72 174/79 08/14/16 23:25 98.1 63 18 148/78 99 EKG: Sinus bradycardia rate 50 prolonged QT of 504 ms with QTC of [address] elevation or injury pattern change noted Differential Diagnosis Chronic abdominal pain, gastritis, peptic ulcer disease, perforated viscus, GI bleed, esophageal variceal bleed, Ramonita-Ramírez tear, Boerhaave's, gastroparesis , pancreatitis, biliary colic, dehydration, medical noncompliance, malingering Narrative Course IV access obtained specimens collected and sent for resulting orthostatic measurements performed patient administered Protonix 40 mg IV and Zofran 4 mg IV Patient with persistent vomiting Reglan 10 mg IV piggyback administered along with normal saline bolus Patient continues to complain of epigastric pain with ongoing nausea; patient identified to have elevated lactic acid of 2.8 most likely reflective of vomiting and hydration status; no significant electrolyte disturbance; hemoglobin remained stable patient has Hemoccult testing negative for blood in emesis or on rectal exam. Patient with persistent pain and vomiting; plan will be observation admission for intractable vomiting also noted to have prolonged QT on EKG with concern for possible inappropriate dosing of Zofran as an outpatient will hold further Zofran at this time. Critical Care Narrative Aggregate critical care time was 35 minutes. Time to perform other separately billable procedures was not included in the critical care time. My time did not include minutes spent treating any other patients simultaneously or on activities that did not directly contribute to the patient's treatment. The services I provided to this patient were to treat and/or prevent clinically significant deterioration that could result in: Arrhythmia, metabolic/ electrolyte disturbance, I provided critical care services requiring my management, as noted below: Chart data review, documentation time, medication orders and management, vital sign assessments/reviewing monitor data, ordering and reviewing lab tests, ordering and interpreting/reviewing x-rays and diagnostic studies, care of the patient and discussion of the patient with the admitting physicians. HemaPrompt Point of Care Internal Pos. & Neg. Controls: Passed Gastric Specimen Occult Blood: Negative Physician Communication Physician Communication discussed with Dr Castanon--obs Diagnosis Primary Impression: Intractable vomiting with nausea Qualified Code: R11.2 - Intractable vomiting with nausea, unspecified vomiting type Admitting Information Admitting Physician Requests: Observation Bharti Bagley MD Aug 14, 2016 23:55
[2016-08-15] VITALS (7 sets, daily range): BP systolic 131–175; BP diastolic 56–83; PULSE 57–78; RESP 16–18; TEMP 97.1–98.1; O2SAT 92–99
[2016-08-15 00:18] LABS: AUTOMATED NEUTROPHIL # 7.5 TH/MM3 (1.8-7.7); BASOPHIL # 0.1 TH/MM3 (0-0.2); BASOPHIL % 0.9 % (0.0-2.0); EOSINOPHIL # 0.3 TH/MM3 (0-0.4); EOSINOPHIL % 3.5 % (0.0-4.0); HEMATOCRIT 43.6 % (39.0-51.0); HEMO FLAGS AUTO DIFF; LYMPH % 10.9 % (9.0-44.0); MEAN CELL VOLUME 100.2 FL (80.0-100.0); MEAN CORPUSCULAR HEMOGLOBIN 34.3 PG (27.0-34.0); MEAN CORPUSCULAR HGB CONC 34.3 % (32.0-36.0); MONO % 7.2 % (0.0-8.0); NEUT % 77.5 % (16.0-70.0); PLATELET COUNT 233 TH/MM3 (150-450); RED BLOOD COUNT 4.35 MIL/MM3 (4.50-5.90); RED CELL DISTRIBUTION WIDTH 12.6 % (11.6-17.2); WHITE BLOOD COUNT 9.6 TH/MM3 (4.0-11.0)
[2016-08-15 00:37] LABS: CHLORIDE 102 MEQ/L (98-107); POTASSIUM 3.4 MEQ/L (3.5-5.1); SODIUM (NA) 138 MEQ/L (136-145)
[2016-08-15 00:41] LABS: ANION GAP 12 MEQ/L (5-15); BICARBONATE 23.7 MEQ/L (21.0-32.0); BLOOD UREA NITROGEN 12 MG/DL (7-18); MAGNESIUM 1.7 MG/DL (1.5-2.5)
[2016-08-15 00:43] LABS: ALT (GPT) 36 U/L (12-78); AST (GOT) 34 U/L (15-37); GLOMERULAR FILTRATION RATE 83 ML/MIN (>89)
[2016-08-15 00:45] LABS: TOTAL BILIRUBIN ADULT 0.6 MG/DL (0.2-1.0)
[2016-08-15] MEDS ORDERED: METOCLOPRAMIDE HCL 10 MG/2 ML VIAL IV PUSH ONE (00:45)
[2016-08-15 00:46] LABS: ALKALINE PHOSPHATASE 79 U/L (45-117)
--- NOTE | 2016-08-15 00:46 | RADHPO ---
EXAM DATE/TIME: 08/15/2016 00:20 [place] COMPARISON: ABDOMEN FLAT & UPRIGHT, August 09, 2016, 5:07. INDICATIONS : Nausea, vomiting for 12 hours MEDICAL HISTORY : None. SURGICAL HISTORY : Appendectomy. ENCOUNTER: Initial ACUITY: 1 day PAIN SCORE: 10/10 LOCATION: Bilateral upper abdomen FINDINGS: Supine and upright views of the abdomen were performed. The abdominal bowel gas pattern is normal. No air fluid levels are seen. No abnormal masses, calcifications, or organomegaly is seen. The visu alized lower lungs are clear. No evidence of free intraperitoneal gas. Stable degenerative changes in the spine and hips. CONCLUSION: No dilated loops of small or large bowel. Gonsalo Hoyt MD on August 15, 2016 at 0:44 Board Certified Radiologist. This report was verified electronically.
[2016-08-15 01:09] LABS: PLATELET ESTIMATE SMEAR NORMAL (NORMAL); PLATELET MORPHOLOGY NORMAL (NORMAL); SCAN/DIFF AUTO DIFF CONFIRMED
[2016-08-15] MEDS ORDERED: SODIUM CHLORIDE 0.9% FLUSH 5 ML FLUSH IVF PRN (02:00)
[2016-08-15] MEDS ORDERED: BISACODYL 10 MG SUPP PR PRN (02:15)
[2016-08-15] MEDS ORDERED: ACETAMINOPHEN 325 MG TAB PO PRN (02:15)
[2016-08-15] MEDS ORDERED: ACETAMINOPHEN/HYDROcodone 325 MG/5 MG TAB PO PRN (02:15)
[2016-08-15] MEDS ORDERED: SODIUM CHLORIDE 0.9% FLUSH 5 ML FLUSH FLUSH PRN (02:15)
[2016-08-15] MEDS ORDERED: MORPHINE SULFATE 4 MG/ML INJ IV PRN (02:15)
[2016-08-15] MEDS ORDERED: PROCHLORPERAZINE INJ 10 MG/2 ML VIAL IVS PRN (02:15)
[2016-08-15] MEDS: SODIUM CHLOR 0.9% 1000 ML INJ 1,000 ML IV SCH ×2 (03:07→12:07)
[2016-08-15] MEDS ORDERED: SODIUM CHLORIDE 0.9% FLUSH 5 ML FLUSH FLUSH SCH (09:00)
[2016-08-15] MEDS ORDERED: SODIUM CHLORIDE 0.9% FLUSH 5 ML FLUSH IVF SCH (09:00)
[2016-08-15] MEDS ORDERED: OMEP40CA2 PO (15:21)
[2016-08-15] MEDS ORDERED: MIRA33504 PO (15:21)
--- NOTE | 2016-08-15 15:21 | HHI.DCPOC ---
Discharge Care Plan Diagnosis: (1) Nausea and vomiting (2) Abdominal pain Goals to Promote Your Health * To prevent worsening of your condition and complications * To maintain your health at the optimal level Directions to Meet Your Goals Take your medications as prescribed Follow your dietary instruction Follow activity as directed Keep your appointments as scheduled Take your immunizations and boosters as scheduled If your symptoms worsen call your PCP, if no PCP go to Urgent Care Center or Emergency Room Smoking is Dangerous to Your Health. Avoid second hand smoke Call the 24-hour hour crisis hotline for domestic abuse at Kate Madera MD Aug 15, 2016 15:21
[2016-08-15] MEDS ORDERED: POTASSIUM CHLORIDE 20 MEQ CONTROLLED RELEASE TAB PO ONE (16:00)
--- NOTE | 2016-08-15 16:09 | HHI.HP ---
[facility] No Primary Care Physician Admission Diagnosis intractable vomiting; h/o gastroparesis Diagnoses: (1) Chronic abdominal pain Diagnosis: Principal (2) Nausea and vomiting Diagnosis: Principal Chief Complaint: abdominal pain, n/v Travel History International Travel<30 Days: No Contact w/Intl Traveler <30 Da: No Traveled to Known Affected Are: No History of Present Illness 66-year-old male with history of chronic abdominal pain, GERD, gastritis/gastric ulcer, gastroparesis, gastroenteritis, diverticulitis, is admitted for intractable vomiting. Patient has been to the ED each day for the last 5 days with same complaint. The patient complains of chronic abdominal pain. He states he returned to the hospital due to persistent pain but denies the pain being worse. He states he felt like he had a "perforation" and that acid was leaking. Patient had a CT scan of the abdomen and pelvis on 08/13/16 which showed diverticular disease but no diverticulitis, and repeat abdominal films are without obstruction. The patient states he had endoscopy and colonoscopy on 07/09/15 and was found to have a small ulceration in the stomach and states his esophagus was "expanded". He states ate a sandwich last night and 1 hour afterwards had vomiting stating it was "foamy and clear". The patient states he has had severe GERD; only takes Tums at home. He may have taken a PPI in the past but no longer takes this. Drinks a bottle of wine per day. He has used Phenergan. Patient states he does his own rectal irrigation with hot water. States he only has small amount of stool and feels constipated. Denies blood in the stool. Dr. Bradford is patient's GI physician. Review of Systems Except as stated in HPI: all other systems reviewed are Neg Past Family Social History Past Medical History Diverticulosis, diverticulitis Gastritis, gastric ulcer Gastroenteritis Gastroparesis GERD Past Surgical History Appendectomy Reported Medications Phenergan (Promethazine HCl) 25 Mg Tab 25 Mg PO Q6H PRN Tums (Calcium Carbonate (Antacid)) 500 Mg Chew 500 Mg CHEW PRN Allergies: Coded Allergies: No Known Allergies (Verified , 08/14/16) Family History Mother: of breast cancer Father: of lung cancer. Social History Patient drinks one bottle of wine daily, stopped 4 days ago. He smokes 3-5 cigars per day Physical Exam Vital Signs Vital Signs Date Time Temp Pulse Resp B/P Pulse Ox O2 Delivery O2 Flow Rate FiO2 08/15/16 12:00 98.1 58 18 131/72 99 08/15/16 12:00 99 21 08/15/16 08:00 97.1 57 18 134/74 92 08/15/16 06:46 78 16 146/56 Room Air 08/15/16 06:07 96 21 08/15/16 02:45 72 18 137/72 99 Room Air 08/15/16 02:07 78 18 136/83 98 Room Air 08/15/16 00:13 72 18 160/80 74 18 175/76 72 174/79 08/14/16 23:25 98.1 63 18 148/78 99 Physical Exam GENERAL: This is a well-nourished, well-developed patient, in no apparent distress. SKIN: No rashes, ecchymoses or lesions. Warm and dry. HEAD: Atraumatic. Normocephalic. EYES: No scleral icterus. No injection or drainage. NECK: Trachea midline. CARDIOVASCULAR: Regular rate and rhythm without murmurs, gallops, or rubs. RESPIRATORY: Clear to auscultation. Breath sounds equal bilaterally. No wheezes , rales, or rhonchi. GASTROINTESTINAL: Abdomen soft, non-tender, nondistended. No guarding. NEUROLOGICAL: Awake and alert. Motor grossly within normal limits. Normal speech. PSYCHIATRIC: Normal mood and affect. Laboratory Laboratory Tests Test 08/15/16 00:00 White Blood Count 9.6 Red Blood Count 4.35 Hemoglobin 14.9 Hematocrit 43.6 Mean Corpuscular Volume 100.2 Mean Corpuscular Hemoglobin 34.3 Mean Corpuscular Hemoglobin 34.3 Concent Red Cell Distribution Width 12.6 Platelet Count 233 Mean Platelet Volume 8.6 Neutrophils (%) (Auto) 77.5 Lymphocytes (%) (Auto) 10.9 Monocytes (%) (Auto) 7.2 Eosinophils (%) (Auto) 3.5 Basophils (%) (Auto) 0.9 Neutrophils # (Auto) 7.5 Lymphocytes # (Auto) 1.0 Monocytes # (Auto) 0.7 Eosinophils # (Auto) 0.3 Basophils # (Auto) 0.1 CBC Comment AUTO DIFF Differential Comment AUTO DIFF CONFIRMED Platelet Estimate NORMAL Platelet Morphology Comment NORMAL Sodium Level 138 Potassium Level 3.4 Chloride Level 102 Carbon Dioxide Level 23.7 Anion Gap 12 Blood Urea Nitrogen 12 Creatinine 0.91 Estimat Glomerular Filtration 83 Rate Random Glucose 95 Lactic Acid Level 2.8 Calcium Level 8.9 Magnesium Level 1.7 Total Bilirubin 0.6 Aspartate Amino Transf 34 (AST/SGOT) Alanine Aminotransferase 36 (ALT/SGPT) Alkaline Phosphatase 79 Total Protein 7.3 Albumin 3.7 Lipase 156 Ethyl Alcohol Level LESS THAN 3 Result Diagram: 08/15/16 0000 08/15/16 0000 Imaging Last Impressions Abdomen X-Ray 08/14/16 0000 Signed Impressions: Service Date/Time: Monday, August 15, 2016 00:20 - CONCLUSION: No dilated loops of small or large bowel. Gonsalo Hoyt MD Assessment and Plan Assessment and Plan 66-year-old male presents with: Chronic abdominal pain, nausea/vomiting: The patient presented 5 times within the last 5 days to the ER. Abdominal imaging without any acute abnormalities. Patient ate today without issue. Patient drinks one bottle of wine per day which is likely contributing to his symptoms of severe GERD and stomach upset. No report of bleeding aside from directly around the anus from straining from constipation. Patient had EGD and colonoscopy 1 year ago. -Antiemetics -Patient will be discharged on Omeprazole and Miralax. -Decrease alcohol intake -Follow up outpatient with GI Hypokalemia: 3.4. Attributed to vomiting. -40 mEq by mouth KCl ordered. DVT prevention: Early ambulation Written by Savita Kohler PA-C acting as scribe for Dr. Madera on 08/15/16 at ~ 1510. Medical Decision Making Impression and Plan Patient seen and evaluated today. Patient will need to continue with medications as prescribed. The exam, history, and the medical decision-making described in the above note were completed with my assistance as the dictating practitioner. I attest that I had a [id number] encounter with the patient on the same day, and personally performed all of the history, exam, or medical decision making. I reviewed and agree with the plan. Savita Kohler Aug 15, 2016 16:09 Kate Madera MD Aug 15, 2016 16:49
--- NOTE | 2016-08-15 19:31 | EKG ---
Date Performed: 08/15/2016 Time Performed: 00:45:26 PTAGE: 66 years EKG: Sinus bradycardia Prolonged QT interval Borderline ECG PREVIOUS TRACING : 04/30/2016 16.52 Compared to prior tracing no significant change DOCTOR: Tani Kay Interpretating Date/Time 08/15/2016 19:29:51
[2016-08-15] MEDS ORDERED: PANTOPRAZOLE SODIUM 40 MG VIAL IV PUSH SCH (21:00)
== END 2016-08-15 17:00 | disposition home or self-care (01) ==
LOC: PHED 23:20 → PHEDA 08-15 01:53 → PHEDH 08-15 05:53 → PH3A 08-15 07:31
PROVIDERS: ADMIT Hospitalist; ATTEND Hospitalist
DX: R11.2 Nausea with vomiting, unspecified (principal); R10.9 Unspecified abdominal pain; G89.29 Other chronic pain; K21.9 Gastro-esophageal reflux disease without esophagitis; E87.6 Hypokalemia; Z87.11 Personal history of peptic ulcer disease; Z90.49 Acquired absence of other specified parts of digestive tract
CPT/HCPCS: 74020; 80053; 80307; 83605; 83690; 83735; 85025; 93005; 96374; 96375; 99291; C9113; G0378; J0780; J2405; J2765; J7030

== ENCOUNTER 2016-12-22 09:26 | Emergency (ER) | payer MEDICARE ==
[~2016-12-22] VITALS: Ht 182.9 cm; Wt 65.8 kg
[~2016-12-22 09:26] MED LIST changes: -FAMO1TAB73 PO; +MIRA33504 PO; +OMEP40CA2 PO; -ZOFR4TAB3 SL
[2016-12-22 09:32] VITALS: BP 157/79; PULSE 64; RESP 22; TEMP 98.3; O2SAT 100
[2016-12-22] MEDS ORDERED: NEXI40CA PO (10:06)
[2016-12-22] MEDS ORDERED: ASPI1POW8 (10:06)
--- NOTE | 2016-12-22 10:13 | PD ---
HPI Chief Complaint: GI Complaint Time Seen by Provider: 10:08 Travel History International Travel<30 days: No Contact w/Intl Traveler<30days: No Traveled to known affect area: No History of Present Illness HPI This 66-year-old male is complaining of epigastric pain and vomiting. His symptoms started 2 days ago. He seemed a little better yesterday with eczema overeaten. Symptoms started again around 3:00 this morning. He is having some generalized abdominal pain and vomiting. He has had recurrent attacks like this before. He has seen Dr. Martinez and is had endoscopy which showed that he has ulcers. He is on Prilosec. He does not take anti-inflammatory medicines. He is not a heavy drinker. He smokes marijuana occasionally PFSH Past Medical History Hx Anticoagulant Therapy: No Autoimmune Disease: No Cancer: No Cardiovascular Problems: No Chemotherapy: No Cerebrovascular Accident: No Diabetes: No Diminished Hearing: No Diverticulitis: Yes Endocrine: No Gastrointestinal Disorders: Yes (gastroentritis, GASTRIC ULCERS) GERD: Yes Genitourinary: No Heparin Induced Thrombocytopen: No Immune Disorder: No Implanted Vascular Access Dvce: No Musculoskeletal: Yes Neurologic: Yes (EAR RINGING LEFT EAR) Psychiatric: No Reproductive: No Respiratory: No Immunizations Current: Yes Radiation Therapy: No Renal Failure: No Sickle Cell Disease: No Thyroid Disease: No Ulcer: Yes (Gastric) Tetanus Vaccination: < 5 Years Influenza Vaccination: Yes Past Surgical History Abdominal Surgery: Yes (appendectomy ) Appendectomy: Yes Hysterectomy: No Other Surgery: Yes Social History Alcohol Use: Yes (~2 BEERS DAILY) Tobacco Use: Yes (1 CIGAR DAILY) Substance Use: No Allergies-Medications (Allergen,Severity, Reaction): Coded Allergies: No Known Allergies (Verified , 12/22/16) Reported Meds & Prescriptions Reported Meds & Active Scripts Active Zofran Odt (Ondansetron Odt) 4 Mg Tab 4 Mg SL Q6HR PRN Protonix Liq (Pantoprazole Sodium) 40 Mg Pkt 40 Mg PO DAILY Omeprazole 40 Mg Cap 40 Mg PO DAILY Reported Bc Fast Pain Relief Powder (Aspirin-Caffeine Powder) 845-65 Mg Powderpack Nexium (Esomeprazole DR) 40 Mg Capdr 40 Mg PO DAILY Tums (Calcium Carbonate (Antacid)) 500 Mg Chew 500 Mg CHEW PRN Review of Systems General / Constitutional: No: Fever, Chills Eyes: No: Diploplia, Blurred Vision HENT: No: Headaches, Vertigo Cardiovascular: No: Chest Pain or Discomfort, Palpitations Respiratory: No: Cough, Shortness of Breath Gastrointestinal: Positive: Nausea, Vomiting, Abdominal Pain, No: Diarrhea, Hematemesis, Changes in Bowel Habits Genitourinary: No: Urgency, Frequency Musculoskeletal: No: Myalgias, Arthralgias Neurologic: No: Weakness Physical Exam Narrative GENERAL: Well-developed male SKIN: Focused skin assessment warm/dry. HEAD: Atraumatic. Normocephalic. EYES: Pupils equal and round. No scleral icterus. No injection or drainage. ENT: No nasal bleeding or discharge. Mucous membranes pink and moist. NECK: Trachea midline. No JVD. CARDIOVASCULAR: Regular rate and rhythm. No murmur appreciated. RESPIRATORY: No accessory muscle use. Clear to auscultation. Breath sounds equal bilaterally. GASTROINTESTINAL: Abdomen soft, non-tender, nondistended. Hepatic and splenic margins not palpable. Bowel sounds active MUSCULOSKELETAL: No obvious deformities. No clubbing. No cyanosis. No edema. NEUROLOGICAL: Awake and alert. No obvious cranial nerve deficits. Motor grossly within normal limits. Normal speech. PSYCHIATRIC: Appropriate mood and affect; insight and judgment normal. Data Data Last Documented VS Vital Signs Date Time Temp Pulse Resp B/P Pulse Ox O2 Delivery O2 Flow Rate FiO2 12/22/16 10:06 12/22/16 09:32 98.3 64 22 100 Room Air Orders Complete Blood Count With Diff (12/22/16 10:08) Comprehensive Metabolic Panel (12/22/16 10:08) Lipase (12/22/16 10:08) Sodium Chlor 0.9% 1000 Ml Inj (Ns 1000 M (12/22/16 10:15) Ondansetron Inj (Zofran Inj) (12/22/16 10:15) Hydromorphone Pf Inj (Dilaudid Pf Inj) (12/22/16 10:15) Pantoprazole Inj (Protonix Inj) (12/22/16 10:15) Labs Laboratory Tests Test 12/22/16 10:15 White Blood Count 7.4 TH/MM3 Red Blood Count 4.41 MIL/MM3 Hemoglobin 15.0 GM/DL Hematocrit 44.7 % Mean Corpuscular Volume 101.4 FL Mean Corpuscular Hemoglobin 34.1 PG Mean Corpuscular Hemoglobin 33.6 % Concent Red Cell Distribution Width 13.2 % Platelet Count 239 TH/MM3 Mean Platelet Volume 7.5 FL Neutrophils (%) (Auto) 73.4 % Lymphocytes (%) (Auto) 13.7 % Monocytes (%) (Auto) 8.6 % Eosinophils (%) (Auto) 3.7 % Basophils (%) (Auto) 0.6 % Neutrophils # (Auto) 5.5 TH/MM3 Lymphocytes # (Auto) 1.0 TH/MM3 Monocytes # (Auto) 0.6 TH/MM3 Eosinophils # (Auto) 0.3 TH/MM3 Basophils # (Auto) 0.0 TH/MM3 CBC Comment DIFF FINAL Differential Comment Sodium Level 139 MEQ/L Potassium Level 5.0 MEQ/L Chloride Level 106 MEQ/L Carbon Dioxide Level 30.1 MEQ/L Anion Gap 3 MEQ/L Blood Urea Nitrogen 13 MG/DL Creatinine 1.00 MG/DL Estimat Glomerular Filtration 75 ML/MIN Rate Random Glucose 100 MG/DL Calcium Level 8.4 MG/DL Total Bilirubin 0.3 MG/DL Aspartate Amino Transf 29 U/L (AST/SGOT) Alanine Aminotransferase 21 U/L (ALT/SGPT) Alkaline Phosphatase 73 U/L Total Protein 7.1 GM/DL Albumin 3.2 GM/DL Lipase 148 U/L [facility] Medical Decision Making Medical Screen Exam Complete: Yes Emergency Medical Condition: Yes Medical Record Reviewed: Yes Differential Diagnosis Differential includes ulcer, cyclic vomiting, gastroparesis Narrative Course Patient has been given IV fluids with improvement. He has trouble swallowing pills and I will prescribe Protonix liquid. Diagnosis Primary Impression: Peptic ulcer disease Scripts Ondansetron Odt (Zofran Odt)4 Mg Tab4 Mg SL Q6HR PRN (Nausea/Vomiting) #10 TAB Ref 0 Prov:Jeremy Howell MD 12/22/16 Pantoprazole Liq (Protonix Liq)40 Mg Pkt40 Mg PO DAILY #30 PKT Ref 0 Prov:Jeremy Howell MD 12/22/16 Disposition: 01 DISCHARGE HOME Condition: Stable Jeremy Howell MD Dec 22, 2016 10:13
[2016-12-22] MEDS ORDERED: HYDROmorphone HCL PF 1 MG/ML VIAL IV PUSH ONE (10:15)
[2016-12-22] MEDS ORDERED: ONDANSETRON HCL 4 MG/2 ML VIAL IV PUSH ONE (10:15)
[2016-12-22] MEDS ORDERED: PANTOPRAZOLE SODIUM 40 MG VIAL IV PUSH ONE (10:15)
[2016-12-22] MEDS ORDERED: SODIUM CHLOR 0.9% 1000 ML INJ 1,000 ML IV ONE (10:15)
[2016-12-22 10:18] LABS: AUTOMATED NEUTROPHIL # 5.5 TH/MM3 (1.8-7.7); BASOPHIL % 0.6 % (0.0-2.0); EOSINOPHIL # 0.3 TH/MM3 (0-0.4); EOSINOPHIL % 3.7 % (0.0-4.0); HEMATOCRIT 44.7 % (39.0-51.0); HEMO FLAGS DIFF FINAL; LYMPH % 13.7 % (9.0-44.0); MEAN CELL VOLUME 101.4 FL (80.0-100.0); MEAN CORPUSCULAR HEMOGLOBIN 34.1 PG (27.0-34.0); MEAN CORPUSCULAR HGB CONC 33.6 % (32.0-36.0); MONO % 8.6 % (0.0-8.0); NEUT % 73.4 % (16.0-70.0); PLATELET COUNT 239 TH/MM3 (150-450); RED BLOOD COUNT 4.41 MIL/MM3 (4.50-5.90); RED CELL DISTRIBUTION WIDTH 13.2 % (11.6-17.2); WHITE BLOOD COUNT 7.4 TH/MM3 (4.0-11.0)
[2016-12-22 10:31] LABS: CHLORIDE 106 MEQ/L (98-107); SODIUM (NA) 139 MEQ/L (136-145)
[2016-12-22 10:35] LABS: ANION GAP 3 MEQ/L (5-15); BICARBONATE 30.1 MEQ/L (21.0-32.0); BLOOD UREA NITROGEN 13 MG/DL (7-18)
[2016-12-22 10:38] LABS: ALT (GPT) 21 U/L (12-78); AST (GOT) 29 U/L (15-37); GLOMERULAR FILTRATION RATE 75 ML/MIN (>89)
[2016-12-22 10:39] LABS: TOTAL BILIRUBIN ADULT 0.3 MG/DL (0.2-1.0)
[2016-12-22 10:40] LABS: ALKALINE PHOSPHATASE 73 U/L (45-117)
[2016-12-22] MEDS ORDERED: ZOFR4TAB3 SL (11:03)
[2016-12-22] MEDS ORDERED: PROTPAK PO (11:03)
[2016-12-22 11:42] VITALS: BP 137/60; PULSE 62; RESP 16; O2SAT 98
== END 2016-12-22 11:46 | disposition home or self-care (01) ==
LOC: PHED 09:26
DX: K27.9 Peptic ulcer, site unspecified, unspecified as acute or chronic, without hemorrhage or perforation (principal); K21.9 Gastro-esophageal reflux disease without esophagitis; Z72.0 Tobacco use
CPT/HCPCS: 80053; 83690; 85025; 96361; 96374; 96375; 99284; C9113; J1170; J2405; J7030

== ENCOUNTER 2016-12-23 14:14 | Emergency (ER) | payer MEDICARE ==
[~2016-12-23] VITALS: Ht 180.3 cm; Wt 66.0 kg
[~2016-12-23 14:14] MED LIST changes: +ASPI1POW8; +NEXI40CA PO; +PROTPAK PO; +ZOFR4TAB3 SL
[2016-12-23 14:29] VITALS: BP 154/80; PULSE 62; RESP 16; TEMP 98.2; O2SAT 99
[2016-12-23] MEDS ORDERED: SODIUM CHLOR 0.9% 1000 ML INJ 1,000 ML IV SCH (15:29)
[2016-12-23] MEDS ORDERED: HYDROmorphone HCL PF 1 MG/ML VIAL IVS ONE (15:30)
[2016-12-23] MEDS ORDERED: LIDOCAINE VISCOUS 2% SOLN 15 ML UDC PO ONE (15:30)
[2016-12-23] MEDS ORDERED: PANTOPRAZOLE SODIUM 40 MG VIAL IVP ONE (15:30)
[2016-12-23] MEDS ORDERED: ALUMINUM/MAGNESIUM/SIMETH 30 ML CUP PO ONE (15:30)
[2016-12-23] MEDS ORDERED: SODIUM CHLORIDE 0.9% FLUSH 10 ML FLUSH IV FLUSH PRN (15:30)
[2016-12-23] MEDS ORDERED: ONDANSETRON HCL 4 MG/2 ML VIAL IVP ONE (15:30)
--- NOTE | 2016-12-23 15:40 | PD ---
HPI Chief Complaint: Abdominal Pain Time Seen by Provider: 15:11 Travel History International Travel<30 days: No Contact w/Intl Traveler<30days: No Traveled to known affect area: No History of Present Illness HPI The patient is a 66-year-old male who presents emergency department for nausea, vomiting, and epigastric abdominal pain. The patient states he has a history of peptic ulcer disease diagnosed by endoscopy in the past, is followed by his motor vehicle licence examiner, Dr. Martinez. The patient states he was seen in emergency department yesterday for similar symptoms and had pain medications, antiemetics, and Protonix and was subsequently discharged home. The patient states his symptoms were significantly improved yesterday, he went home and took a nap. He did not fill his prescriptions, however, but when he awakened at 3 AM he was hungry and ate a large meal. The patient then developed epigastric abdominal pain that is been followed by nausea and vomiting every hour. His last bowel movement was this morning, he denies any diarrhea or change in bowel habits. The patient does have a history of appendectomy, denies any history of gallstones or biliary colic. Symptoms are moderate, there are no known alleviating or exacerbating factors. He does complain of subjective fevers, but was afebrile in the emergency department. PFSH Past Medical History Hx Anticoagulant Therapy: No Autoimmune Disease: No Cancer: No Cardiovascular Problems: No Chemotherapy: No Cerebrovascular Accident: No Diabetes: No Diminished Hearing: No Diverticulitis: Yes Endocrine: No Gastrointestinal Disorders: Yes (gastroentritis, GASTRIC ULCERS) GERD: Yes Genitourinary: No Heparin Induced Thrombocytopen: No Immune Disorder: No Implanted Vascular Access Dvce: No Musculoskeletal: Yes Neurologic: Yes (EAR RINGING LEFT EAR) Psychiatric: No Reproductive: No Respiratory: No Immunizations Current: Yes Radiation Therapy: No Renal Failure: No Sickle Cell Disease: No Thyroid Disease: No Ulcer: Yes (Gastric) Tetanus Vaccination: > 5 Years Influenza Vaccination: No Past Surgical History Abdominal Surgery: Yes (appendectomy ) Appendectomy: Yes Hysterectomy: No Other Surgery: Yes Social History Alcohol Use: Yes (~2 BEERS DAILY) Tobacco Use: Yes (1 CIGAR DAILY) Substance Use: No Allergies-Medications (Allergen,Severity, Reaction): Coded Allergies: No Known Allergies (Verified , 12/23/16) Reported Meds & Prescriptions Reported Meds & Active Scripts Active Zofran Odt (Ondansetron Odt) 4 Mg Tab 4 Mg SL Q6HR PRN Protonix Liq (Pantoprazole Sodium) 40 Mg Pkt 40 Mg PO DAILY Omeprazole 40 Mg Cap 40 Mg PO DAILY Review of Systems Except as stated in HPI: all other systems reviewed are Neg General / Constitutional: No: Fever Cardiovascular: No: Chest Pain or Discomfort Respiratory: No: Shortness of Breath Gastrointestinal: Positive: Nausea, Vomiting, Abdominal Pain, No: Diarrhea, Constipation, Changes in Bowel Habits Genitourinary: No: Dysuria Physical Exam Narrative GENERAL: Awake, alert, pleasant 66-year-old male who appears his stated age and is in no acute respiratory distress. SKIN: Focused skin assessment warm/dry. HEAD: Atraumatic. Normocephalic. EYES: Pupils equal and round. No scleral icterus. No injection or drainage. ENT: No nasal bleeding or discharge. Mucous membranes pink and moist. NECK: Trachea midline. No JVD. CARDIOVASCULAR: Regular rate and rhythm. No murmur appreciated. RESPIRATORY: No accessory muscle use. Clear to auscultation. Breath sounds equal bilaterally. GASTROINTESTINAL: Abdomen soft, mild epigastric and periumbilical tenderness. No rebound tenderness, guarding, rigidity. MUSCULOSKELETAL: No obvious deformities. No clubbing. No cyanosis. No edema. NEUROLOGICAL: Awake and alert. No obvious cranial nerve deficits. Motor grossly within normal limits. Normal speech. PSYCHIATRIC: Appropriate mood and affect; insight and judgment normal. Data Data Last Documented VS Vital Signs Date Time Temp Pulse Resp B/P Pulse Ox O2 Delivery O2 Flow Rate FiO2 12/23/16 16:18 16 98 Room Air 12/23/16 14:29 98.2 62 154/80 Orders Complete Blood Count With Diff (12/23/16 15:29) Comprehensive Metabolic Panel (12/23/16 15:29) Lipase (12/23/16 15:29) Iv Access Insert/Monitor (12/23/16 15:29) Ecg Monitoring (12/23/16 15:29) Oximetry (12/23/16 15:29) Ondansetron Inj (Zofran Inj) (12/23/16 15:30) Pantoprazole Inj (Protonix Inj) (12/23/16 15:30) Sodium Chlor 0.9% 1000 Ml Inj (Ns 1000 M (12/23/16 15:29) Sodium Chloride 0.9% Flush (Ns Flush) (12/23/16 15:30) Hydromorphone Pf Inj (Dilaudid Pf Inj) (12/23/16 15:30) Al-Mag Hy-Si 40-40-4 Mg/Ml Liq (Mag-Al P (12/23/16 15:30) Lidocaine 2% Viscous (Xylocaine 2% Visco (12/23/16 15:30) Labs Laboratory Tests Test 12/23/16 15:45 White Blood Count 7.6 TH/MM3 Red Blood Count 4.15 MIL/MM3 Hemoglobin 14.3 GM/DL Hematocrit 42.6 % Mean Corpuscular Volume 102.6 FL Mean Corpuscular Hemoglobin 34.6 PG Mean Corpuscular Hemoglobin 33.7 % Concent Red Cell Distribution Width 13.4 % Platelet Count 253 TH/MM3 Mean Platelet Volume 7.9 FL Neutrophils (%) (Auto) 71.5 % Lymphocytes (%) (Auto) 16.9 % Monocytes (%) (Auto) 6.9 % Eosinophils (%) (Auto) 3.9 % Basophils (%) (Auto) 0.8 % Neutrophils # (Auto) 5.4 TH/MM3 Lymphocytes # (Auto) 1.3 TH/MM3 Monocytes # (Auto) 0.5 TH/MM3 Eosinophils # (Auto) 0.3 TH/MM3 Basophils # (Auto) 0.1 TH/MM3 CBC Comment DIFF FINAL Differential Comment MDM Medical Decision Making Medical Screen Exam Complete: Yes Emergency Medical Condition: Yes Medical Record Reviewed: Yes Differential Diagnosis Differential diagnosis includes gastritis, peptic ulcer disease, biliary colic, choledocholithiasis, cholecystitis, AAA, GERD, esophageal spasm. Narrative Course IV was established, labs are drawn and sent, and the patient was placed on cardiac telemetry monitoring and continuous pulse oximetry monitoring. The patient was administered Zofran, Dilaudid, Protonix, GI cocktail, and IV fluids. I reviewed the EMR, the patient's labs yesterday were unremarkable, we will reevaluate lipase to ensure there is no pancreatitis. The patient is advised to follow-up with his motor vehicle licence examiner. The patient was signed out to the oncoming physician, Dr. Kay, at 4:15 PM with laboratory evaluation pending. If patient's labs are unremarkable and his symptoms improved, the patient is stable for outpatient follow-up. Diagnosis Primary Impression: Abdominal pain Qualified Code: R10.13 - Epigastric pain Condition: Stable Theo Lilly MD Dec 23, 2016 15:40
[2016-12-23 15:51] LABS: AUTOMATED NEUTROPHIL # 5.4 TH/MM3 (1.8-7.7); BASOPHIL # 0.1 TH/MM3 (0-0.2); BASOPHIL % 0.8 % (0.0-2.0); EOSINOPHIL # 0.3 TH/MM3 (0-0.4); EOSINOPHIL % 3.9 % (0.0-4.0); HEMATOCRIT 42.6 % (39.0-51.0); HEMO FLAGS DIFF FINAL; LYMPH % 16.9 % (9.0-44.0); LYMPHOCYTE # 1.3 TH/MM3 (1.0-4.8); MEAN CELL VOLUME 102.6 FL (80.0-100.0); MEAN CORPUSCULAR HEMOGLOBIN 34.6 PG (27.0-34.0); MEAN CORPUSCULAR HGB CONC 33.7 % (32.0-36.0); MONO % 6.9 % (0.0-8.0); NEUT % 71.5 % (16.0-70.0); PLATELET COUNT 253 TH/MM3 (150-450); RED BLOOD COUNT 4.15 MIL/MM3 (4.50-5.90); RED CELL DISTRIBUTION WIDTH 13.4 % (11.6-17.2); WHITE BLOOD COUNT 7.6 TH/MM3 (4.0-11.0)
[2016-12-23 16:18] VITALS: RESP 16; O2SAT 98
[2016-12-23 16:37] LABS: ALKALINE PHOSPHATASE 71 U/L (45-117); ALT (GPT) 19 U/L (12-78); ANION GAP 4 MEQ/L (5-15); AST (GOT) 15 U/L (15-37); BICARBONATE 29.6 MEQ/L (21.0-32.0); BLOOD UREA NITROGEN 10 MG/DL (7-18); CHLORIDE 106 MEQ/L (98-107); GLOMERULAR FILTRATION RATE 83 ML/MIN (>89); POTASSIUM 3.9 MEQ/L (3.5-5.1); SODIUM (NA) 140 MEQ/L (136-145); TOTAL BILIRUBIN ADULT 0.2 MG/DL (0.2-1.0)
--- NOTE | 2016-12-23 16:51 | PD ---
Data Data Last Documented VS Vital Signs Date Time Temp Pulse Resp B/P Pulse Ox O2 Delivery O2 Flow Rate FiO2 12/23/16 16:18 16 98 Room Air 12/23/16 14:29 98.2 62 154/80 Orders Complete Blood Count With Diff (12/23/16 15:29) Comprehensive Metabolic Panel (12/23/16 15:29) Lipase (12/23/16 15:29) Iv Access Insert/Monitor (12/23/16 15:29) Ecg Monitoring (12/23/16 15:29) Oximetry (12/23/16 15:29) Ondansetron Inj (Zofran Inj) (12/23/16 15:30) Pantoprazole Inj (Protonix Inj) (12/23/16 15:30) Sodium Chlor 0.9% 1000 Ml Inj (Ns 1000 M (12/23/16 15:29) Sodium Chloride 0.9% Flush (Ns Flush) (12/23/16 15:30) Hydromorphone Pf Inj (Dilaudid Pf Inj) (12/23/16 15:30) Al-Mag Hy-Si 40-40-4 Mg/Ml Liq (Mag-Al P (12/23/16 15:30) Lidocaine 2% Viscous (Xylocaine 2% Visco (12/23/16 15:30) Labs Laboratory Tests Test 12/23/16 15:45 White Blood Count 7.6 TH/MM3 Red Blood Count 4.15 MIL/MM3 Hemoglobin 14.3 GM/DL Hematocrit 42.6 % Mean Corpuscular Volume 102.6 FL Mean Corpuscular Hemoglobin 34.6 PG Mean Corpuscular Hemoglobin 33.7 % Concent Red Cell Distribution Width 13.4 % Platelet Count 253 TH/MM3 Mean Platelet Volume 7.9 FL Neutrophils (%) (Auto) 71.5 % Lymphocytes (%) (Auto) 16.9 % Monocytes (%) (Auto) 6.9 % Eosinophils (%) (Auto) 3.9 % Basophils (%) (Auto) 0.8 % Neutrophils # (Auto) 5.4 TH/MM3 Lymphocytes # (Auto) 1.3 TH/MM3 Monocytes # (Auto) 0.5 TH/MM3 Eosinophils # (Auto) 0.3 TH/MM3 Basophils # (Auto) 0.1 TH/MM3 CBC Comment DIFF FINAL Differential Comment Sodium Level 140 MEQ/L Potassium Level 3.9 MEQ/L Chloride Level 106 MEQ/L Carbon Dioxide Level 29.6 MEQ/L Anion Gap 4 MEQ/L Blood Urea Nitrogen 10 MG/DL Creatinine 0.91 MG/DL Estimat Glomerular Filtration 83 ML/MIN Rate Random Glucose 89 MG/DL Calcium Level 8.1 MG/DL Total Bilirubin 0.2 MG/DL Aspartate Amino Transf 15 U/L (AST/SGOT) Alanine Aminotransferase 19 U/L (ALT/SGPT) Alkaline Phosphatase 71 U/L Total Protein 6.8 GM/DL Albumin 3.4 GM/DL Lipase 140 U/L [facility] Medical Record Reviewed: Yes Supervised Visit with JOANNA: No Narrative Course CBC & BMP Diagram 12/23/16 15:45 LFTs normal Lipase normal Please refer to Dr. Lilly's note. At 4:45 PM patient was reassessed and reported feeling much better. He endorsed a plan to modify his lifestyle including cessation of energy drinks and also to consider new work which he believes might help reduce his personal stress. In any case his blood work is reassuring and the patient has good follow-up. Diagnosis Primary Impression: Abdominal pain Qualified Code: R10.13 - Epigastric pain Referrals: Melecio Bradford MD 2 days Additional Instruction: You have a choice when it comes to health care, and we are glad that you chose [facility]. Hopefully, we have met your expectations on today's visit. You are welcome to return to [facility] at any time, as we are committed to meeting the health care needs of our community. Med/Other Pt SpecificInfo: No Change to Meds Disposition: 01 DISCHARGE HOME Condition: Stable Seymour Kay MD Dec 23, 2016 16:51
[2016-12-23 17:17] VITALS: BP 136/60; PULSE 50; RESP 16; O2SAT 96
== END 2016-12-23 18:08 | disposition home or self-care (01) ==
LOC: PHED 14:14
DX: R10.13 Epigastric pain (principal)
CPT/HCPCS: 80053; 83690; 85025; 96361; 96374; 96375; 99284; C9113; J1170; J2405; J7030

== ENCOUNTER 2017-02-04 17:13 | Emergency (ER) | payer MEDICARE ==
[~2017-02-04] VITALS: Ht 177.8 cm; Wt 68.0 kg
[~2017-02-04 17:13] MED LIST changes: -ASPI1POW8; -MIRA33504 PO; -NEXI40CA PO; -PROM25TA5 PO; -TUMS500C CHEW
[2017-02-04] MEDS ORDERED: EPINEPHrine HCL (1:10,000) 1 MG/10 ML SYRINGE IV ONE (17:14)
[2017-02-04] MEDS ORDERED: LIDOCAINE HCL 2% 100 MG/5 ML SYRINGE IV PUSH ONE (17:14)
[2017-02-04] MEDS ORDERED: CALCIUM CHLORIDE 10% SOLN 1 GRAM/10 ML SYR IV ONE (17:14)
--- NOTE | 2017-02-04 17:56 | PD ---
HPI Chief Complaint: Code Blue Time Seen by Provider: 17:31 Travel History International Travel<30 days: No Contact w/Intl Traveler<30days: No Traveled to known affect area: No History of Present Illness HPI This is a gentleman who presents to the emergency department in cardiac arrest. He was found down at his work. It was suspected that he was unconscious for about 15 minutes. CPR was initiated when EMS arrived. Patient was defibrillated 5 times in the field and given 6 mg of epinephrine as well as bicarbonate and dextrose. Little is known about his medical history. A Combitube was placed. [facility] Past Medical History Narrative Medical Unknown Social History Tobacco Use: No Review of Systems ROS Limitations: Unresponsive Physical Exam Narrative GENERAL: Unresponsive with CPR in progress SKIN: Pooling and cyanosis in the head and face HEAD: Atraumatic. Normocephalic. EYES: 4 mm, equal and reactive. No injection or drainage. ENT: Moist mucous membranes. Combtube in place. NECK: Trachea midline. CARDIOVASCULAR: Pulseless RESPIRATORY: Breath sounds equal bilaterally. GASTROINTESTINAL: Abdomen soft, non-tender, nondistended. MUSCULOSKELETAL: No obvious deformities. NEUROLOGICAL: GCS 3t MDM Medical Decision Making Medical Screen Exam Complete: Yes Emergency Medical Condition: Yes Differential Diagnosis Myocardial infarction, aortic dissection, pulmonary embolism, hemorrhagic shock , septic shock Narrative Course This is a patient who presents to the emergency department in ventricular fibrillation having been defibrillated 5 times in the field. CPR was continued in the emergency department. He was given additional doses of lidocaine and calcium. He was defibrillated unsuccessfully and then double sequential defibrillation was performed twice. Ultimately the patient was found to be in slow agonal PEA. No cardiac activity was appreciated on ultrasound. Further resuscitation was deemed futile. Diagnosis Primary Impression: Cardiac arrest Disposition: 20 SENT TO MED EXAMINR Condition: Araceli Elizondo MD Feb 04, 2017 17:56
== END 2017-02-04 19:22 | disposition expired ==
LOC: MERGE 17:13 → NEPC 17:13 → EDBD 17:13 → NEPB 19:22
DX: I46.9 Cardiac arrest, cause unspecified (principal)
CPT/HCPCS: 92950; 99285; J0171